=== PATIENT | male | born 1955 | race Hispanic/Latino ===

== ENCOUNTER 2017-10-25 18:19 | Inpatient (IN) | payer BC ==
[~2017-10-25] VITALS: Ht 172.7 cm; Wt 84.4 kg
[2017-10-25 19:37] VITALS: BP 123/65
[2017-10-25] MEDS ORDERED: ASPI-1026 PO (19:44)
[2017-10-25] MEDS ORDERED: GLIP5TAB11 PO (19:44)
[2017-10-25] MEDS ORDERED: SACU1TAB7 PO (19:44)
[2017-10-25] MEDS ORDERED: REPA2TAB8 PO (19:44)
[2017-10-25] MEDS ORDERED: AMLO5TAB2 PO (19:44)
[2017-10-25] MEDS ORDERED: PRAV40TA3 PO (19:44)
[2017-10-25] MEDS ORDERED: CARV25TA PO (19:44)
[2017-10-25] MEDS ORDERED: TORS20TA4 PO (19:44)
[2017-10-25 23:55] VITALS: BP 141/66
[2017-10-26] VITALS (13 sets, daily range): BP systolic 124–157; BP diastolic 51–75
[2017-10-26 04:05] LABS: INR 1.03 (0.85-1.15); PARTIAL THROMBOPLASTIN TIME 25.8 SEC (26.3-35.5); PROTHROMBIN TIME 10.8 SEC (9.6-11.6)
[2017-10-26 04:11] LABS: ALBUMIN 2.7 g/dL (3.5-5.0); BILIRUBIN,TOTAL 0.5 mg/dL (0.2-1.0); POTASSIUM 4.8 mmol/L (3.5-5.1); TOTAL PROTEIN, SERUM 5.9 g/dL (6.0-8.3)
[2017-10-26 04:13] LABS: HEMATOCRIT 29.8 % (42-54); MEAN CORPUSCULAR HEMOGLOBIN 26.1 pg (27.0-33.0); MEAN CORPUSCULAR HGB CONC 33.7 g/dL (32.0-36.0); MEAN CORPUSCULAR VOLUME 77.5 fL (79-99); NUCLEATED RED BLOOD CELLS 0.1 % (0.0-0.19); PLATELET COUNT (AUTO) 173 K/uL (130-400); RED BLOOD CELL COUNT(AUTO) 3.85 MIL/uL (4.50-6.20); RED CELL DISTRIBUTION WIDTH 15.2 % (11.0-15.5); WHITE BLOOD COUNT (AUTO) 5.9 K/uL (4.8-10.8)
[2017-10-26] MEDS ORDERED: DEXTROSE 5%-WATER 1,000 ML IV SCH (05:00)
[2017-10-26 05:14] LABS: BASOPHILS % (MANUAL) 2 % (0-2); EOSINOPHILS % (MANUAL) 2 % (1-6); LYMPHOCYTES % (MANUAL) 15 % (22-44); MONOCYTES % (MANUAL) 3 % (2-9); SEGMENTED NEUTROPHILS % 78 % (40-70)
[2017-10-26 05:15] LABS: MAN.DIFF COMMENT-IMPRESSION MANUAL DIFFERENTIAL; PLATELET MORPHOLOGY COMMENT ADEQUATE
[2017-10-26] MEDS ORDERED: MORPHINE SULFATE 2 MG/ML 1ML SYG IV PRN (05:30)
[2017-10-26] MEDS ORDERED: ACETAMINOPHEN 325 MG TAB PO PRN (05:30)
[2017-10-26] MEDS ORDERED: HYDRALAZINE HCL 20 MG/ML VIAL IV PRN (05:30)
[2017-10-26] MEDS ORDERED: ONDANSETRON HCL 4 MG/2 ML VIAL IV PRN (05:30)
[2017-10-26] MEDS ORDERED: HEPARIN SODIUM 1000UNIT/ML 10ML VIAL ONE (11:43)
[2017-10-26] MEDS ORDERED: BIVALIRUDIN 250 MG/VIAL IV ONE (11:43)
[2017-10-26] MEDS ORDERED: IOPAMIDOL-370 100 ML VIAL IV ONE (11:43)
[2017-10-26] MEDS ORDERED: LIDOCAINE HCL 2% 20ML ONE (11:43)
[2017-10-26] MEDS ORDERED: NITROGLYCERIN 5 MG/ML 10 ML VIAL IV ONE (11:43)
[2017-10-26] MEDS ORDERED: GLUCAGON 1MG KIT 1 MG ML IM PRN (13:00)
[2017-10-26] MEDS ORDERED: DEXTROSE 50%-WATER 50 ML DISP.SYRIN IV PRN (13:00)
[2017-10-26] MEDS: SODIUM CHLORIDE 0.9% 1000ML 1,000 ML IV SCH (13:32)
[2017-10-26] MEDS: REPAGLINIDE 1 MG TAB PO SCH (16:25)
[2017-10-26] MEDS: FAMOTIDINE 20MG TAB 20 MG TAB PO SCH (16:26)
[2017-10-26] MEDS ORDERED: ATORVASTATIN CALCIUM 20 MG TABLET PO SCH (21:00)
[2017-10-26] MEDS ORDERED: GLIPIZIDE 5 MG TABLET PO SCH ×2 (21:00→21:02)
[2017-10-26] MEDS: CARVEDILOL 25 MG TABLET PO SCH (21:15)
[2017-10-26] MEDS: ***HM***(Sacubitril/Valsartan (Entresto 49 mg-51 mg Tablet) 1 EACH PO SCH (21:16)
[2017-10-27 03:04] VITALS: BP 110/45
[2017-10-27 04:03] LABS: CREATININE 2.3 mg/dL (0.5-1.5); POTASSIUM 4.6 mmol/L (3.5-5.1)
[2017-10-27] MEDS: REPAGLINIDE 1 MG TAB PO SCH (06:41)
[2017-10-27 07:43] VITALS: BP 144/64
[2017-10-27] MEDS: CARVEDILOL 25 MG TABLET PO SCH (08:23)
[2017-10-27] MEDS: FAMOTIDINE 20MG TAB 20 MG TAB PO SCH (08:23)
[2017-10-27] MEDS ORDERED: ISOSORBIDE MONO 30MG TAB SR PO SCH (09:00)
[2017-10-27] MEDS ORDERED: TORSEMIDE 20 MG TAB PO SCH (09:00)
[2017-10-27] MEDS ORDERED: ASPIRIN 325 MG TABLET PO SCH (09:00)
[2017-10-27] MEDS ORDERED: AMLODIPINE BESYLATE 5 MG TAB PO SCH (09:00)
[2017-10-27] MEDS: SODIUM CHLORIDE 0.9% 1000ML 1,000 ML IV SCH (09:15)
[2017-10-27] MEDS ORDERED: TORS20TA4 PO (10:12)
[2017-10-27] MEDS ORDERED: ISOS30TA6 PO (10:12)
[2017-10-27] MEDS ORDERED: GLIP5TAB11 PO (10:12)
[2017-10-27] MEDS: ***HM***(Sacubitril/Valsartan (Entresto 49 mg-51 mg Tablet) 1 EACH PO SCH (10:12)
[2017-10-27] MEDS ORDERED: NITR0.4T50 SL (10:12)
[2017-10-27 12:12] VITALS: BP 120/54
== END 2017-10-27 15:10 | disposition home or self-care (01) | DRG 286 ==
LOC: 2AH 19:03
PROVIDERS: ADMIT Family Medicine; ATTEND Family Medicine
PROC: B2131ZZ Fluoroscopy of Multiple Coronary Artery Bypass Grafts using Low Osmolar Contrast (ICD-10-PCS; principal; 2017-10-26)
PROC: B2111ZZ Fluoroscopy of Multiple Coronary Arteries using Low Osmolar Contrast (ICD-10-PCS; 2017-10-26)
PROC: 4A023N7 Measurement of Cardiac Sampling and Pressure, Left Heart, Percutaneous Approach (ICD-10-PCS; 2017-10-26)
DX: I25.110 Atherosclerotic heart disease of native coronary artery with unstable angina pectoris (principal); I50.23 Acute on chronic systolic (congestive) heart failure; E11.22 Type 2 diabetes mellitus with diabetic chronic kidney disease; E11.51 Type 2 diabetes mellitus with diabetic peripheral angiopathy without gangrene; I13.0 Hypertensive heart and chronic kidney disease with heart failure and stage 1 through stage 4 chronic kidney disease, or unspecified chronic kidney disease; I12.9 Hypertensive chronic kidney disease with stage 1 through stage 4 chronic kidney disease, or unspecified chronic kidney disease; D64.9 Anemia, unspecified; E66.9 Obesity, unspecified; E78.5 Hyperlipidemia, unspecified; I25.5 Ischemic cardiomyopathy; N18.3 Chronic kidney disease, stage 3 (moderate); Z89.511 Acquired absence of right leg below knee; Z95.1 Presence of aortocoronary bypass graft; Z95.5 Presence of coronary angioplasty implant and graft
CPT/HCPCS: 36415; 71045; 80048; 80053; 82948; 85025; 85610; 85730; 93005; 93455; 93458; C1760; C1894; J0583; J1644; J3490; J7030; Q9967

== ENCOUNTER 2018-09-01 06:41 | Observation (INO) | payer BC ==
[2018-08-30 14:26] VITALS: BP 144/61
[2018-08-30 14:31] LABS: BASOPHILS % (AUTO) 1.2 % (0.0-5.0); EOSINOPHILS % (AUTO) 2.4 % (0.0-8.0); HEMATOCRIT 34.6 % (42-54); LYMPHOCYTES % (AUTO) 11.7 % (21.0-51.0); MEAN CORPUSCULAR HEMOGLOBIN 24.1 pg (27.0-33.0); MEAN CORPUSCULAR HGB CONC 31.5 g/dL (32.0-36.0); MEAN CORPUSCULAR VOLUME 76.7 fL (79-99); MONOCYTES % (AUTO) 7.6 % (3.0-13.0); NEUTROPHILS % (AUTO) 77.1 % (40.0-77.0); PLATELET COUNT (AUTO) 165 K/uL (130-400); RED BLOOD CELL COUNT(AUTO) 4.51 MIL/uL (4.50-6.20); RED CELL DISTRIBUTION WIDTH 17.6 % (11.0-15.5); WHITE BLOOD COUNT (AUTO) 7.5 K/uL (4.8-10.8)
[2018-08-30 14:41] LABS: CREATININE 2.5 mg/dL (0.5-1.5)
[2018-08-30 14:42] LABS: INR 1.03 (0.85-1.15); PARTIAL THROMBOPLASTIN TIME 28.3 SEC (26.3-35.5); PROTHROMBIN TIME 10.8 SEC (9.6-11.6)
[~2018-09-01] VITALS: Ht 175.3 cm; Wt 84.4 kg
[2018-09-01] VITALS (14 sets, daily range): BP systolic 125–176; BP diastolic 45–83
[~2018-09-01 06:41] MED LIST: ASPI-555 PO; ATOR40TA71 PO; CARV6.25 PO; GLIP5TAB11 PO; HYDR-4153 PO; ISOS30TA6 PO; NITR0.4T50 SL; REPA2TAB8 PO; SODIUM CHLORIDE 0.9% 1000ML 1,000 ML IV SCH; TORS20TA4 PO
[2018-09-01] MEDS ORDERED: CEFAZOLIN SODIUM 1 GM VIAL ONE (09:06)
[2018-09-01] MEDS ORDERED: BUPIVACAINE/PF 0.25% 50ML VIAL IJ ONE (09:06)
[2018-09-01] MEDS ORDERED: MEPERIDINE-PF 25 MG/ML SYG ONE ×3 (09:07→09:32)
[2018-09-01] MEDS ORDERED: LIDOCAINE HCL 1% MDV 50ML VIAL ONE (09:07)
[2018-09-01] MEDS ORDERED: MIDAZOLAM HCL 1 MG/ML 2ML VIAL ONE ×3 (09:07→09:32)
[2018-09-01] MEDS ORDERED: ACETAMINOPHEN-CODEINE 300/30MG TAB PO PRN (10:15)
[2018-09-01] MEDS ORDERED: ACETAMINOPHEN 325 MG TAB PO PRN (10:15)
[2018-09-01] MEDS: ACETAMINOPHEN-CODEINE 300/30MG TAB PO PRN ×2 (14:24→21:58)
[2018-09-01] MEDS: REPAGLINIDE 2 MG PO SCH (20:27)
[2018-09-01] MEDS: HYDRALAZINE HCL 25 MG TABLET PO SCH (20:29)
[2018-09-01] MEDS: CARVEDILOL 6.25 MG TABLET PO SCH (20:29)
[2018-09-01] MEDS: GLIPIZIDE 5 MG TABLET PO SCH (20:29)
[2018-09-01] MEDS ORDERED: ASPIRIN 81MG TAB.CHEW PO SCH (21:00)
[2018-09-01] MEDS ORDERED: ATORVASTATIN CALCIUM 40 MG TABLET PO SCH (21:00)
[2018-09-02 03:20] VITALS: BP 146/71
[2018-09-02] MEDS: CARVEDILOL 6.25 MG TABLET PO SCH (06:56)
[2018-09-02] MEDS: HYDRALAZINE HCL 25 MG TABLET PO SCH (06:56)
[2018-09-02 06:58] VITALS: BP 172/77
[2018-09-02 07:36] VITALS: BP 165/77
[2018-09-02] MEDS ORDERED: TORSEMIDE 20 MG TAB PO SCH (09:00)
[2018-09-02] MEDS ORDERED: ISOSORBIDE MONO 30MG TAB SR PO SCH (09:00)
[2018-09-02] MEDS: GLIPIZIDE 5 MG TABLET PO SCH (09:03)
[2018-09-02] MEDS: REPAGLINIDE 2 MG PO SCH (09:14)
[2018-09-02 11:36] VITALS: BP 144/70
[2018-09-02] MEDS ORDERED: CEPH250 PO (11:45)
== END 2018-09-02 15:18 | disposition home or self-care (01) ==
LOC: DAH 06:41 → DAHIP 06:42 → 2DH 14:06
PROVIDERS: ADMIT Internal Medicine Critical Care Medicine; ATTEND Internal Medicine Critical Care Medicine
DX: I11.0 Hypertensive heart disease with heart failure (principal); I50.42 Chronic combined systolic (congestive) and diastolic (congestive) heart failure; I42.9 Cardiomyopathy, unspecified; I48.0 Paroxysmal atrial fibrillation; I25.10 Atherosclerotic heart disease of native coronary artery without angina pectoris; E11.51 Type 2 diabetes mellitus with diabetic peripheral angiopathy without gangrene; Z90.49 Acquired absence of other specified parts of digestive tract; Z95.1 Presence of aortocoronary bypass graft; Z95.5 Presence of coronary angioplasty implant and graft; Z79.899 Other long term (current) drug therapy; Z79.01 Long term (current) use of anticoagulants
CPT/HCPCS: 33249; 36415; 71045; 80048; 82948 ×6; 85025; 85610; 85730; A4606; C1721; C1895 ×2; G0378 ×33; J0690; J2175 ×3; J2250 ×3; J3490 ×2; J7030; 99156; 99157